=== PATIENT | male | born 1990 | race Caucasian/White ===

== ENCOUNTER 2020-04-01 14:33 | Emergency (ER) | payer SELFPAY ==
[2020-04-01] MEDS ORDERED: CLINDAMYCIN 900 MG/D5W RTU 900 MG/50 ML RTUPB IV ONE (15:05)
--- NOTE | 2020-04-01 15:09 | ER Document Report ---
ED Medical Screen (RME) - General Chief Complaint: Hand Pain Stated Complaint: LEFT HAND PAIN,SWELLING Time Seen by Provider: 04/01/20 14:59 Notes: Patient is a 29-year-old male who presents emergency department with a chief complaint of left hand pain and left foot pain. He noticed that he was having broken skin to the area. States that he is having body aches and chills. Exam: Abscesses noted to left hand near fourth knuckle and dorsal second metacarpal. Abscess noted to left foot near fourth metatarsal. I have greeted and performed a rapid initial assessment of this patient. A comprehensive ED assessment and evaluation of the patient, analysis of test results and completion of medical decision making process will be conducted by an additional ED providers. Physical Exam - Vital signs Vitals: Temp Pulse Resp BP Pulse Ox 97.9 F 74 20 149/76 H 98 04/01/20 14:41 04/01/20 14:41 04/01/20 14:41 04/01/20 14:41 04/01/20 14:41 Course - Vital Signs Vital signs: Temp Pulse Resp BP Pulse Ox 97.9 F 74 20 149/76 H 98 04/01/20 14:41 04/01/20 14:41 04/01/20 14:41 04/01/20 14:41 04/01/20 14:41
[2020-04-01 15:52] LABS: ABSOLUTE EOSINOPHILS # (AUTO) 0.1 10^3/uL (0.0-0.6); ABSOLUTE MONOCYTES (AUTO) 0.5 10^3/uL (0.1-1.4); ABSOLUTE NEUT (AUTO) 4.8 10^3/uL (1.7-8.2); BASOPHILS % (AUTO) 0.7 % (0-2); EOSINOPHILS % (AUTO) 1.6 % (0-6); HEMATOCRIT 44.5 % (37.9-51.0); HEMOGLOBIN 14.7 g/dL (13.5-17.0); LYMPHOCYTES % (AUTO) 26.8 % (13-45); MEAN CORPUSCULAR HEMOGLOBIN 32.3 pg (27.0-33.4); MEAN CORPUSCULAR HGB CONC 33.1 g/dL (32.0-36.0); MEAN CORPUSCULAR VOLUME 98 fl (80-97); MONOCYTES % (AUTO) 6.2 % (3-13); PLATELET COUNT 225 10^3/uL (150-450); RED BLOOD COUNT 4.56 10^6/uL (4.35-5.55); RED CELL DISTRIBUTION WIDTH 12.7 % (11.5-14.0); SEGMENTED NEUTROPHILS % (AUTO) 64.7 % (42-78); TOTAL CELLS COUNTED % (AUTO) 100 %; WHITE BLOOD COUNT 7.4 10^3/uL (4.0-10.5)
[2020-04-01 16:10] LABS: ALBUMIN 4.2 g/dL (3.5-5.0); ALKALINE PHOSPHATASE 70 U/L (38-126); ANION GAP 7 (5-19); ASPARTATE AMINO TRANSFERASE 17 U/L (17-59); BILIRUBIN,DIRECT 0.2 mg/dL (0.0-0.4); BILIRUBIN,TOTAL 0.3 mg/dL (0.2-1.3); BLOOD UREA NITROGEN 9 mg/dL (7-20); CALCIUM 9.4 mg/dL (8.4-10.2); CARBON DIOXIDE 31 mmol/L (22-30); CHLORIDE 100 mmol/L (98-107); GLUCOSE 92 mg/dL (75-110); POTASSIUM 3.8 mmol/L (3.6-5.0); TOTAL PROTEIN 7.3 g/dL (6.3-8.2)
[2020-04-01] MEDS ORDERED: DIPH/PERTUSS(ACELL)/TETANUS VAC/PF 0.5 ML SYR (>=10YO) IM ONE (16:18)
[2020-04-01] MEDS ORDERED: HYDROCODONE/ACETAMINOPHEN 5-325 MG TABLET PO ONE (16:18)
[2020-04-01] MEDS ORDERED: CLINDAMYCIN HCL 150 MG CAPSULE PO ONE (16:18)
--- NOTE | 2020-04-01 16:19 | ER Document Report ---
ED General - General Chief Complaint: Hand Pain Stated Complaint: LEFT HAND PAIN,SWELLING Time Seen by Provider: 04/01/20 14:59 Notes: CHIEF COMPLAINT: Infected areas left hand left foot HPI: 29-year-old male who denies IV drug use presenting for infected areas on the dorsal left hand and dorsal left foot over the last week. States small ab scesses have been coming up and he has been draining them with a pin at home. Not up-to-date on tetanus vaccination per the patient. Reports the pain and discomfort were so great today that he decided to come into the emergency department for evaluation. No fevers ROS: See HPI - all other systems were reviewed and are otherwise negative Constitutional: no fever Integumentary: + rash Allergy: no hives Musculoskeletal: + extremity pain or swelling Neurological: no numbness/tingling, no weakness MEDICATIONS: I agree with the patient medications as charted by the RN. ALLERGIES: I agree with the allergies as charted by the RN. PAST MEDICAL HISTORY/PAST SURGICAL HISTORY: Reviewed and agree as charted by RN. SOCIAL HISTORY: Reviewed and agree as charted by RN. FAMILY HISTORY: No significant familial comorbid conditions directly related to patient complaint EXAM: Reviewed vital signs as charted by RN. CONSTITUTIONAL: Alert and oriented and responds appropriately to questions. Wel l-appearing; well-nourished HEAD: Normocephalic; atraumatic EYES: Conjunctivae clear, sclerae non-icteric ENT: normal nose; no rhinorrhea; moist mucous membranes NECK: Supple without meningismus CARD: symmetric distal pulses RESP: Normal chest excursion without splinting or tachypnea ABD/GI: non-distended BACK: The back appears normal EXT: Normal ROM in all joints; there are multiple small erythematous areas on the dorsal left hand at the base of the third fourth and fifth metacarpals. No indurated regions no fluctuant regions. There is a scabbed open area with some erythema measuring 2.5 cm on the dorsal left foot at the base of the fourth toe proximal to the MTP region. Again no induration or fluctuant areas. SKIN: Normal color for age and race; warm; dry; good turgor NEURO: Moves all extremities equally; Motor and sensory function intact PSYCH: The patient's mood and manner are appropriate. Grooming and personal hygiene are appropriate. 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 Will give antibiotics, very short course of pain medication as well as anti-inflammatories strict return precautions - Related Data Allergies/Adverse Reactions: No Known Allergies Allergy (Unverified 04/01/20 16:49) Past Medical History - Social History Smoking Status: Unknown if Ever Smoked Family History: Reviewed & Not Pertinent Physical Exam - Vital signs Vitals: Temp Pulse Resp BP Pulse Ox 97.9 F 74 20 149/76 H 98 04/01/20 14:41 04/01/20 14:41 04/01/20 14:41 04/01/20 14:41 04/01/20 14:41 Course - Vital Signs Vital signs: Temp Pulse Resp BP Pulse Ox 97.9 F 74 20 149/76 H 98 04/01/20 14:41 04/01/20 14:41 04/01/20 14:41 04/01/20 14:41 04/01/20 14:41 - Laboratory Results Result Diagrams: 04/01/20 15:20 04/01/20 15:20 Laboratory Results Interpreted: 04/01/20 04/01/20 15:20 15:20 MCV 98 H Carbon Dioxide 31 H Critical Laboratory Results Reviewed: No Critical Results - Radiology Results Critical Radiology Results Reviewed: No Critical Results Discharge - Discharge Clinical Impression: Cellulitis of hand, left, Cellulitis of foot, left Condition: Stable Disposition: HOME, SELF-CARE Additional Instructions: Continue to clean the skin with soap and water twice daily. Take the antibiotics and medications as prescribed. Return for worsening redness or swelling of the hands or feet Prescriptions: Clindamycin HCl [Cleocin 150 mg Capsule] 150 mg PO Q6 #40 capsule Hydrocodone/Acetaminophen [[place] 5-325 mg Tablet] 1 tab PO Q4 PRN #10 tablet PRN Reason: Diclofenac Sodium [Voltaren 50 Mg Tablet.] 50 mg PO BID #20 tablet. Referrals: PAUL MITCHELL MD [[facility]AFF] - Follow up as needed
[2020-04-01 18:03] VITALS: BP 126/86
== END 2020-04-01 17:55 | disposition home or self-care (01) ==
LOC: ER 14:33
DX: L03.114 Cellulitis of left upper limb (principal); L03.116 Cellulitis of left lower limb; Z23 Encounter for immunization
CPT/HCPCS: 36415; 80053; 85025; 87040; 90471; 90715; 99284